=== PATIENT | female | born 2000 | race American Indian/Alaskan Native ===

== ENCOUNTER 2021-12-10 14:27 | Emergency (ER) | payer SELFPAY ==
--- NOTE | 2021-12-10 17:17 | Emergency Department Report ---
ED ENT HPI - General Chief complaint: Dental/Oral Stated complaint: SORE THROAT Time Seen by Provider: 12/10/21 15:20 Source: patient Mode of arrival: Ambulatory Limitations: No Limitations - History of Present Illness MD complaint: tooth pain -: Gradual Location: tooth # Severity: mild, moderate Quality: dull Consistency: constant Improves with: none Worsens with: position, eating, movement Context- Dental: history of dental caries, poor dental care Associated Symptoms: gum swelling, toothache. denies: tinnitus, hearing loss, discharge from ear, rhinorrhea - Related Data Previous Rx's Medication Instructions Recorded Last Taken Type Amoxicillin [Amoxicillin TAB] 875 mg PO BID #20 tablet 12/10/21 Unknown Rx Chlorhexidine Mouthwash [Peridex] 15 ml MM BID #1 bottle 12/10/21 Unknown Rx Ketorolac [Toradol] 10 mg PO Q6H PRN #15 tablet 12/10/21 Unknown Rx Lidocaine Viscous 2% 5 ml MM Q3H PRN #120 udc 12/10/21 Unknown Rx Allergies Allergy/AdvReac Type Severity Reaction Status Date / Time No Known Allergies Allergy Unverified 12/10/21 15:00 ED Dental HPI - General Chief complaint: Dental/Oral Stated complaint: SORE THROAT Time Seen by Provider: 12/10/21 15:20 Source: patient Mode of arrival: Ambulatory Limitations: No Limitations - Related Data Previous Rx's Medication Instructions Recorded Last Taken Type Amoxicillin [Amoxicillin TAB] 875 mg PO BID #20 tablet 12/10/21 Unknown Rx Chlorhexidine Mouthwash [Peridex] 15 ml MM BID #1 bottle 12/10/21 Unknown Rx Ketorolac [Toradol] 10 mg PO Q6H PRN #15 tablet 12/10/21 Unknown Rx Lidocaine Viscous 2% 5 ml MM Q3H PRN #120 udc 12/10/21 Unknown Rx Allergies Allergy/AdvReac Type Severity Reaction Status Date / Time No Known Allergies Allergy Unverified 12/10/21 15:00 ED Review of Systems ROS: Stated complaint: SORE THROAT Other details as noted in HPI Comment: All other systems reviewed and negative ED Past Medical Hx - Medications Home Medications: Home Medications Medication Instructions Recorded Confirmed Last Taken Type Amoxicillin [Amoxicillin TAB] 875 mg PO BID #20 tablet 12/10/21 Unknown Rx Chlorhexidine Mouthwash [Peridex] 15 ml MM BID #1 bottle 12/10/21 Unknown Rx Ketorolac [Toradol] 10 mg PO Q6H PRN #15 tablet 12/10/21 Unknown Rx Lidocaine Viscous 2% 5 ml MM Q3H PRN #120 udc 12/10/21 Unknown Rx ED Physical Exam - General Limitations: No Limitations General appearance: alert, in no apparent distress - Head Head exam: Present: atraumatic, other - Eye Eye exam: Present: normal appearance, PERRL, EOMI, scleral icterus - ENT ENT exam: Present: normal exam, normal orophraynx, mucous membranes moist, other (Swelling to the left mandible region. With palpation diffuse gingival caries noted. With swelling to the left mandible region in the gingival areas suggestive of abscess formation. Airway is patent tongue uvula midline.) - Expanded ENT Exam Expanded Teeth exam: Present: dental caries - Neck Neck exam: Present: normal inspection - Respiratory Respiratory exam: Present: normal lung sounds bilaterally. Absent: respiratory distress, rhonchi, stridor, accessory muscle use, decreased breath sounds - Cardiovascular Cardiovascular Exam: Present: regular rate, normal rhythm. Absent: systolic murmur, diastolic murmur, rubs, gallop - GI/Abdominal GI/Abdominal exam: Present: soft, normal bowel sounds - Extremities Exam Extremities exam: Present: normal inspection - Back Exam Back exam: Present: normal inspection - Neurological Exam Neurological exam: Present: alert, oriented X3 - Psychiatric Psychiatric exam: Present: normal affect, normal mood - Skin Skin exam: Present: warm, dry, intact, normal color. Absent: rash ED Course Vital Signs 12/10/21 15:00 Temperature 99.4 F Pulse Rate 80 Respiratory 18 Rate Blood Pressure 129/73 [Right] O2 Sat by Pulse 99 Oximetry Critical care attestation.: If time is entered above; I have spent that time in minutes in the direct care of this critically ill patient, excluding procedure time. ED Disposition Clinical Impression: Infected dental caries, Dental abscess Disposition: 01 HOME / SELF CARE / HOMELESS Is pt being admited?: No Does the pt Need Aspirin: No Condition: Stable Instructions: Dental Abscess Prescriptions: Amoxicillin [Amoxicillin TAB] 875 mg PO BID #20 tablet Lidocaine Viscous 2% 5 ml MM Q3H PRN #120 udc PRN Reason: Pain, Moderate (4-6) Chlorhexidine Mouthwash [Peridex] 15 ml MM BID #1 bottle Ketorolac [Toradol] 10 mg PO Q6H PRN #15 tablet PRN Reason: Pain Referrals: PRIMARY CARE,MD [Primary Care Provider] - 3-5 Days [facility] [Outside] - 3-5 Days
[2021-12-10 19:41] VITALS: BP 152/99
[2021-12-10 19:43] LABS: HCG Qualitative,Urine Negative (Negative)
== END 2021-12-10 19:41 | disposition home or self-care (01) ==
LOC: ED 14:27
DX: K02.9 Dental caries, unspecified (principal); K04.7 Periapical abscess without sinus
CPT/HCPCS: 81025; 99283